=== PATIENT | female | born 1995 | race Caucasian/White ===

== ENCOUNTER 2019-04-27 22:31 | Emergency (ER) | payer BC ==
[2019-04-27 23:09] VITALS: TEMP 98.3; BMI 19.5
--- NOTE | 2019-04-27 23:33 | PDOC ---
Documentation entered by Massiel Vitale SCRIBE, acting as scribe for Aliya Harden MD. Aliya Harden MD: This documentation has been prepared by the scribe, Massiel Vitale SCRIBE, under my direction and personally reviewed by me in its entirety. I confirm that the documentation accurately reflects all work, treatment, procedures, and medical decision making performed by me. History of Present Illness - General Chief Complaint: Vaginal Bleeding Stated Complaint: 5 WKS /BLEEDING Time Seen by Provider: 04/27/19 23:17 History Source: Patient Exam Limitations: No Limitations - History of Present Illness Initial Comments: 04/27/19 23:47 The patient is a 23-year-old female, A3, currently five weeks , LMP 03/20/2019, with a past medical history significant for R. ovarian cyst who presents to the emergency department with vaginal spotting. The patient reports she noticed some burgundy colored vaginal spotting from 04/15-04/22, which self resolved. The patient reports that during that course of time, she didn't have intercourse. The patient reports she didn't have any bleeding on the . The patient states she had intercourse on the , following she noticed some light -colored bleeding, which resolved. The patient denies bleeding, until today, when she noticed some burgundy colored vaginal spotting, associated with an episode of lightheadedness. Denies syncopal episodes or falls. Denies fever or chills. The patient reports her POULTRY GRADER is on Maternity leave, so she hadn't seen followed up for care. The patient reports her cousin works as [employer], who did an [employer] on the patient, which shows she was four weeks . Past History - Past Medical History Allergies/Adverse Reactions: Allergies Allergy/AdvReac Type Severity Reaction Status Date / Time No Known Allergies Allergy Verified 04/27/19 23:00 Home Medications: Ambulatory Orders No Home Medications 08/26/11 COPD: No - Immunization History Immunization Up to Date: Yes - Psycho Social/Smoking Cessation Hx Smoking Status: No Smoking History: Never smoked Have you smoked in the past 12 months: No Number of Cigarettes Smoked Daily: 0 Information on smoking cessation initiated: No Hx Alcohol Use: No Drug/Substance Use Hx: No Substance Use Type: None Review of Systems - Review of Systems Able to Perform ROS?: Yes Comments:: 04/27/19 23:48 CONSTITUTIONAL: Absent: fever, chills, diaphoresis, generalized weakness, malaise, loss of appetite HEENT: Absent: rhinorrhea, nasal congestion, throat pain, throat swelling, difficulty swallowing, mouth swelling, ear pain, eye pain, visual Changes CARDIOVASCULAR: Absent: chest pain, syncope, palpitations, irregular heart rate, lightheadedness , peripheral edema RESPIRATORY: Absent: cough, shortness of breath, dyspnea with exertion, orthopnea, wheezing, stridor, hemoptysis GASTROINTESTINAL: Absent: abdominal pain, abdominal distension, nausea, vomiting, diarrhea, constipation, melena, hematochezia GENITOURINARY: +vaginal spotting. Absent: dysuria, frequency, urgency, hesitancy, hematuria, flank pain, genital pain MUSCULOSKELETAL: Absent: myalgia, arthralgia, joint swelling SKIN: Absent: rash, itching, pallor HEMATOLOGIC/IMMUNOLOGIC: Absent: easy bleeding, easy bruising, lymphadenopathy, frequent infections ENDOCRINE: Absent: unexplained weight gain, unexplained weight loss, heat intolerance, cold intolerance NEUROLOGIC: Absent: headache, focal weakness or paresthesias, dizziness, unsteady gait, seizure, mental status changes, bladder or bowel incontinence PSYCHIATRIC: Absent: anxiety, depression, suicidal or homicidal ideation, hallucinations. *Physical Exam - Vital Signs Last Vital Signs Temp Pulse Resp BP Pulse Ox 98.3 F 90 17 119/61 100 04/27/19 22:58 04/27/19 22:58 04/27/19 22:58 04/27/19 22:58 04/27/19 22:58 - Physical Exam 04/27/19 23:49 GENERAL: Thin 23 year old female. Well-appearing, well-nourished. No apparent distress. HEENT: Normocephalic, atraumatic. PERRL, EOM intact. CARDIOVASCULAR: Normal S1, S2. Regular rate and rhythm. PULMONARY: Clear to auscultation bilaterally. ABDOMEN: Soft, flat, non-distended, non-tender. : EXTREMITIES: Normal ROM in all four extremities. No gross deformities. SKIN: Warm, dry. No rash NEUROLOGICAL: Moving all extremities. No focal neurological deficits. ED Treatment Course - LABORATORY CBC & Chemistry Diagram: 04/27/19 23:30 - RADIOLOGY Radiology Studies Ordered: Category Date Time Status TRANSVAGINAL US PREG [US] Stat Ultrasound 04/27/19 23:18 Ordered Medical Decision Making - Medical Decision Making 04/27/19 23:23 23-year-old female who presents with concerns for vaginal spotting states her last menstrual period was March 20. She is 4 para 0 ,she has had 3 abortions Past surgical history none past medical history none 04/27/19 23:33 Plan: beta-hCG, type and screen, CBC and transvaginal ultrasound 04/28/19 01:35 Beta-hCG is 11,329 CBC is within normal limits there is no significant anemia 04/28/19 01:35 Hemoglobin is 13,000 and hematocrit is 40,000 04/28/19 02:16 Blood type is O+ Transvaginal ultrasound impression Intrauterine gestational sac measuring 1.2 cm Estimated gestational age 5 weeks and 6 days No pole at this time No subchorionic hemorrhage left 1.5 cm ovarian cyst with internal debris noted, no hypervascularity Impression :early but she needs to have repeat beta-hCG and repeat ultrasound in 2 days to make sure there is no heterotopic 04/28/19 02:19 Discharge - Discharge Information Problems reviewed: Yes Clinical Impression/Diagnosis: Vaginal bleeding affecting early Condition: Good Disposition: HOME - Admission No - Follow up/Referral Referrals: Tsering Barnhart MD [Primary Care Provider] - - Patient Discharge Instructions Patient Printed Discharge Instructions: DI for Vaginal Bleeding During Additional Instructions: You need to repeat your pelvic ultrasound and BHCG in 2 days - Post Discharge Activity
[2019-04-28 00:06] LABS: BASO % 1.1 % (0-2.0); EOS % 1.4 % (0-4.5); HEMATOCRIT 40.5 % (32.4-45.2); HEMOGLOBIN 13.6 GM/dL (10.7-15.3); MCH 30.7 pg (25.7-33.7); MCHC 33.7 g/dl (32.0-36.0); MEAN CELL VOLUME 90.9 fl (80-96); MEAN PLT VOLUME 8.5 fl (7.5-11.1); MONO % 7.5 % (3.8-10.2); PLATELET COUNT 382 K/MM3 (134-434); RBC 4.45 M/mm3 (3.60-5.2); RDW 12.8 % (11.6-15.6); WHITE BLOOD COUNT 9.8 K/mm3 (4.0-10.0)
[2019-04-28 02:43] VITALS: BP 116/62; PULSE 86
== END 2019-04-28 02:47 | disposition home or self-care (01) ==
LOC: JER 22:31
DX: O26.891 Other specified pregnancy related conditions, first trimester (principal); O20.8 Other hemorrhage in early pregnancy; O34.81 Maternal care for other abnormalities of pelvic organs, first trimester; N83.292 Other ovarian cyst, left side; Z3A.01 Less than 8 weeks gestation of pregnancy
CPT/HCPCS: 36415; 76817-TC; 84702; 85025; 86850; 86900; 86901; 99283-25

== ENCOUNTER 2019-11-22 03:40 | Inpatient (IN) | payer BC ==
--- OUTSIDE RECORDS SUMMARY | 2019-11-22 04:13 | XMS ---
:1995 Demographics Address [address] [place] [address] Preferred Language Romansh Marital Status or Jainism Affiliation NO Race [facility] Ethnic Group or Author Organization [facility] Support Name Relationship Address Phone [employer] Unavailable [address], [place] [address] [facility] Unavailable [place] [address] LUCY BAIRD FATHER [address] [place] [address] ALEX BAIRD MOTHER [address] [place] [address] Care Team Providers Name Role Phone JUAN RAMON Unavailable Unavailable Re-disclosure Warning The records that you are about to access may contain information from federally- assisted alcohol or drug abuse programs. If such information is present, then the following federally mandated warning applies: This information has been disclosed to you from records protected by federal confidentiality rules (42 CFR part 2). The federal rules prohibit you from making any further disclosure of this information unless further disclosure is expressly permitted by the written consent of the person to whom it pertains or as otherwise permitted by 42 CFR part 2. A general authorization for the release of medical or other information is NOT sufficient for this purpose. The Federal rules restrict any use of the information to criminally investigate or prosecute any alcohol or drug abuse patient.The records that you are about to access may contain highly sensitive health information, the redisclosure of which is protected by Article 27-F of the [facility] Public Health law. If you continue you may haveaccess to information: Regarding HIV / AIDS; Provided by facilities licensed or operated by the [facility] Office of Mental Health; or Provided by the [facility] Office for People With Developmental Disabilities. If such information is present, then the following [facility] mandated warning applies: This information has been disclosed to you from confidential records which are protected by state law. State law prohibits you from making any further disclosure of this information without the specific written consent of the person to whom it pertains, or as otherwise permitted by law. Any unauthorized further disclosure in violation of state law may result in a fine or long-term sentence or both. A general authorization for the release of medical or other information is NOT sufficient authorization for further disclosure. Encounters Encounter Providers Location Date Indications Data Source(s ) Outpatient Attender: 06/17/2019 Z03.818 [facility] juve KARAdmitter: JUAN RAMON 01:54:00 [facility] [employer] Z03.818 Insurance Providers Payer name Policy type / Policy ID Covered Covered democrat's Policy Plan Coverage type democrat ID relationship to [employer] Information harden BC PPO [id number] FA [id number] Problems, Conditions, and Diagnoses Code Display Name Description Problem Type Effective Data Sour ce(s) Dates Z03.818 Encounter for ENCNTR FOR OBS Diagnosis 06/17/2019 [facility] for FOR SUSP EXPSR TO 01:54:00 PM [facility] suspected OTH BIOLG AGENTS [employer] exposure to other RULED OUT biological agents ruled out Results ID Date Data Source [id number] 06/17/2019 12:00:00 AM EDT [facility] Name Value Range Interpretation Code Description Data Anca rce(s) Supporting Document(s ) [facility] XXX RAD+probe- Imp This lab was ordered by [facility] and reported by [employer] Procedure
--- OUTSIDE RECORDS SUMMARY | 2019-11-22 04:35 | XMS ---
:1995 Demographics Address [address] [place] [address] Preferred Language Belarusian Marital Status or Confucianist Affiliation NO Race [facility] Ethnic Group or Author Organization [facility] Support Name Relationship Address Phone [employer] DEPT RECRE[employer] Unavailable [address], [place] [address] [facility] [place] [address] LUCY BAIRD FATHER [address] [place] [address] ALEX BAIRD MOTHER [address] [place] [address] Care Team Providers Name Role Phone JUAN [...] is protected by Article 27-F of the [facility] Public Health law. If you continue you may haveaccess to information: Regarding HIV / AIDS; Provided by facilities licensed or operated by the [facility] Office of Mental Health; or Provided by the [facility] Office for People With Developmental Disabilities. If such information is present, then the following [facility] mandated warning applies: This information has been [...] Data Source(s ) Outpatient Attender: 06/17/2019 Z03.818 [facility] juve KARAdmitter: JUAN RAMON 01:54:00 [facility] [employer] Z03.818 Insurance Providers Payer name Policy type / Policy ID Covered Covered libertarian's Policy Plan Coverage type libertarian ID relationship to [employer] PPO [id number] FA [id number] Problems, Conditions, and Diagnoses Code Display Name Description Problem Type Effective Data Sour ce(s) Dates Z03.818 Encounter for ENCNTR FOR OBS Diagnosis 06/[facility] for FOR SUSP EXPSR TO 01:54:00 PM C [facility] suspected OTH BIOLG AGENTS [employer] exposure to other RULED OUT biological agents ruled out Results ID Date Data Source [id number] 06/17/2019 12:00:00 AM EDT [facility] Name Value Range Interpretation Code Description Data Anca rce(s) Supporting Document(s ) [facility] RNA XXX RAD+probe- Imp This lab was ordered by [facility] and reported by [employer] Procedure
[2019-11-22] MEDS: ELECTROLYTE-148 SOLN 1,000 ML IV SCH ×2 (05:00→08:57)
[2019-11-22] MEDS ORDERED: PROMETHAZINE HCL 25 MG/1 ML VIAL ONE (05:12)
[2019-11-22] MEDS ORDERED: SODIUM CHLORIDE 100 ML IVPB ONE ×4 (05:12→16:11)
[2019-11-22] MEDS ORDERED: AMPICILLIN SODIUM 2 GM VIAL ONE (05:12)
[2019-11-22] MEDS ORDERED: BUTORPHANOL TARTRATE 2 MG/ML VIAL ONE (05:12)
[2019-11-22] MEDS ORDERED: PROMETHAZINE HCL 25 MG/1 ML VIAL IVPUSH ONE (05:20)
[2019-11-22] MEDS ORDERED: BUTORPHANOL TARTRATE 1 MG/ML VIAL IVPB ONE (05:20)
[2019-11-22] MEDS ORDERED: AMPICILLIN - 2 GM in SODIUM CHLORIDE 100 ML IVPB ONE (05:21)
--- NOTE | 2019-11-22 05:28 | HP ---
Past Medical History - Primary Care Physician PCP:: Kee Hernandez - Admission Chief Complaint: 24yo P0 with at EGA 35w3d admitted with labor. History of Present Illness: Pt was seen on L&D on 11/21/2019 and tocolysed. She was also given the 1st dose of betamethasone injection. The pt went home and returned today in early active labor. History Source: Patient, Medical Record Limitations to Obtaining History: No Limitations - Past Medical History FRUIT PRESERVER: No: Alzheimer's, CVA, Dementia, Migraine, Multiple Sclerosis, Peripheral Neuropathy, Parkinson's, Seizure, Syncope, TIA, Vertigo, Other Cardiovascular: No: AFIB, Aneurysm, Aortic Insufficiency, Aortic Stenosis, CAD, CHF, Deep Vein Thrombosis, HTN, Hyperlipdemia, PA, Mitral Insufficiency, Mitral Stenosis, Murmur, Pulmonary Hypertension, Other Pulmonary: No: Asthma, Bronchitis, Cancer, COPD, O2 Dependent, Pneumonia, Previously Intubated, Pulmonary Embolus, Pulmonary Fibrosis, Sleep Apnea, Other Gastrointestinal: No: Ascites, Cancer, Constipation, Crohn's Disease, Diverticulitis, Diverticulosis, Esophageal Varices, Gastritis, GERD, GI Bleed, Hemorrhoids, Hiatal Hernia, Inflamatory Bowel Disease, Irritable Bowel Disease, Pancreatitis, Peptic Ulcer Disease, Ulcerative Colitis, Other Hepatobiliary: No: Cirrhosis, Cholelithiasis, Cholecystitis, Choledocholithiasis, Hepatitis A, Hepatitis B, Hepatitis C, Other Renal/: No: Renal Failure, Renal Inusuff, BPH, Cancer, Hematuria, Hemodialysis, Neurogenic Bladder, Renal Calculi, UTI, Other Reproductive: No: Ectopic , Endometriosis, Fibroids, PID, Polycystic Ovary Syndrome, Postmenopausal, Other ...: 4 ...Induced : 3 ... Weeks Gestation by Dates: 35.3 Heme/Onc: No: Anemia, B12 Deficiency, Bleeding Disorder, Cancer, Current Chemotherapy, Current Radiation Therapy, Hemochromatosis, Hypercoaguable State, Myeloproliferative Synd, Sickle Cell Disease, Sickle Cell Trait, Thrombocytopenia, Other Infectious Disease: No: AIDS, C-Diff, Herpes Zoster, HIV, MRSA, STD's, Tuberculosis, VREF, Other Psych: No: Addictions, Anxiety, Bipolar, Depression, Panic, Psychosis, Schizophrenia, Other Musculoskeletal: No: Bursitis, Chronic low back pain, Hemiparesis, Hemiplegia, Osteoarthritis, Paraplegia, Other Rheumatology: No: Fibromyalgia, Gout, Lupus, Rheumatoid Arthritis, Sarcoidosis, Vasculitis, Other ENT: No: Allergic Rhinitis, Sinusitis, Other Endocrine: No: Kemper's Disease, Christen's Disease, Diabetes Insipidus, Diabetes Mellitus, Hyperparathyroidism, Hyperthyroidism, Hypothyroidism, Osteopenia, SIADH, Other Dermatology: No: Basal Cell, Cellulitis, Eczema, Melanoma, Psoriasis, Squamous Cell, Other - Past Surgical History Past Surgical History: Yes: None Hx Myomectomy: No Hx Transabdominal Cerclage: No - Smoking History Smoking history: Never smoked Have you smoked in the past 12 months: No Aproximately how many cigarettes per day: 0 - Alcohol/Substance Use Hx Alcohol Use: No History of Substance Use: reports: None - Social History Usual Living Arrangement: Yes: Alone Do you think of yourself as: Straight/Heterosexual ADL: Independent History of Recent Travel: No Home Medications - Allergies Allergies/Adverse Reactions: Allergies Allergy/AdvReac Type Severity Reaction Status Date / Time No Known Allergies Allergy Verified 11/21/19 14:24 - Home Medications Home Medications: Ambulatory Orders Tablet 1 tab PO DAILY 11/21/19 Family Medical History Family History: Unremarkable Review of Systems - Review of Systems Constitutional: reports: Other (painful contractions) Eyes: reports: No Symptoms HENT: reports: No Symptoms Neck: reports: No Symptoms Cardiovascular: reports: No Symptoms Respiratory: reports: No Symptoms Gastrointestinal: reports: No Symptoms Genitourinary: reports: No Symptoms Breasts: reports: No Symptoms Reported Musculoskeletal: reports: No Symptoms Integumentary: reports: No Symptoms Neurological: reports: No Symptoms Endocrine: reports: No Symptoms Hematology/Lymphatic: reports: No Symptoms Psychiatric: reports: No Symptoms Pain Intensity: 8 Physical Exam - Maternity Constitutional: Yes: Well Nourished, No Distress, Calm Eyes: Yes: WNL, Conjunctiva Clear, EOM Intact HENT: Yes: WNL, Atraumatic, Normocephalic Neck: Yes: WNL, Supple, Trachea Midline Cardiovascular: Yes: WNL, Regular Rate and Rhythm Lungs: Clear to auscultation, Normal air movement Breast(s): Yes: WNL - Abdominal Exam/OB Fundal Height: 34 Number of Fetuses: Single Presentation: Vertex Contractions: Yes Regularity: Regular Intensity: Mild/Mod Monitor Mode: External Heart Rate (range): 130 Heart Rate Location: Midline Category: I Accelerations: Uniform Decelerations: None - Vaginal Exam/OB Vaginal Bleeding: No Speculum Exam: No Dilatation (cm): 4 Effacement (%): 90 Amniotic Membrane Status: Bulging Presentation: Vertex/Position Station: 0 - Physical Exam Musculoskeletal: Yes: WNL Extremities: Yes: WNL Edema: No Integumentary: Yes: WNL Deep Tendon Reflex Grade: Normal +2 ...Motor Strength: WNL Psychiatric: Yes: WNL, Alert, Oriented Hemorrhage Risk Assessment - Risk Factors Medium Risk Factors: Yes: None High Risk Factors: Yes: None Risk Score: 1 Risk Level: Medium Risk Imaging - Results Ultrasound: Report Reviewed Assessment/Plan 24yo P0 with at EGA 35w3d admitted with labor. Labor in early active phase Fetus with Category I tracing. Will start Abx for GBS prphylaxis Pt requested IV analgesia Plan to monitor labor progress
[2019-11-22 06:09] LABS: BASO % 0.1 % (0-2.0); HEMATOCRIT 21.3 % (32.4-45.2); HEMOGLOBIN 7.1 GM/dL (10.7-15.3); LYMPH % 6.9 % (8-40); MCH 30.2 pg (25.7-33.7); MCHC 33.4 g/dl (32.0-36.0); MEAN CELL VOLUME 90.6 fl (80-96); MEAN PLT VOLUME 7.9 fl (7.5-11.1); PLATELET COUNT 206 K/MM3 (134-434); RBC 2.35 M/mm3 (3.60-5.2); RDW 12.7 % (11.6-15.6); WHITE BLOOD COUNT 8.5 K/mm3 (4.0-10.0)
[2019-11-22 06:12] LABS: INR 0.96 (0.83-1.09); PROTHROMBIN TIME (PATIENT) 11.3 SEC (9.7-13.0)
[2019-11-22 06:15] LABS: ACTIVATED PTT 26.2 SECONDS (25.2-36.5)
[2019-11-22 07:14] VITALS: BMI 23.7
[2019-11-22] MEDS ORDERED: AMPICILLIN SODIUM 1 GM VIAL ONE ×3 (08:38→16:11)
[2019-11-22] MEDS: AMPICILLIN - 1 GM in SODIUM CHLORIDE 100 ML IVPB SCH ×3 (08:57→16:51)
[2019-11-22 09:01] LABS: BLOOD UREA NITROGEN 5.7 mg/dL (7-18); CALCIUM 8.4 mg/dL (8.5-10.1); CREATININE 0.5 mg/dL (0.55-1.3); POTASSIUM 4.3 mmol/L (3.5-5.1)
--- NOTE | 2019-11-22 09:17 | PN ---
Ante-Partal Exam - Subjective Subjective: Pt is c/o painful ctx's and pelvic pressure. Vital Signs: Vital Signs Temperature 98.1 F 11/22/19 08:00 Pulse Rate 92 H 11/22/19 08:00 Respiratory Rate 18 11/22/19 08:00 Blood Pressure 106/69 11/22/19 08:00 O2 Sat by Pulse Oximetry (%) Bleeding: No Headache: No Visual changes: No Right upper quadrant pain: No Pain (scale 1-10): 5 - Contractions Contractions: Yes Regularity: Irregular Intensity: Mild/Mod Monitor Mode: External - Exam during Labor Heart Rate: 135 Variability: Moderate Heart Rate Location: Midline Category: I Monitor Accelerations: Present Monitor Decelerations: None Exam: Vaginal Dilatation (cm): 5 Effacement (%): 90 Amniotic Membrane Status: Intact Presentation: Vertex Station: +1 - Intrapartum Hemorrhage Risk Medium Risk Factors: None High Risk Factors: None Risk Score: 0 Risk Level: Low Risk - Assessment/Plan Assessment/Plan: Pt progressing in active labor slowly Fetus with Category I tracing and requires no intervention Pt requested an epidural
--- NOTE | 2019-11-22 11:10 | PN ---
Ante-Partal Exam - Subjective Subjective: Pt with c/o contractions but irregular. She decided not to get epidural. Vital Signs: Vital Signs Temperature 98.1 F 11/22/19 08:00 Pulse Rate 101 H 11/22/19 10:18 Respiratory Rate 11/22/19 10:18 Blood Pressure 118/72 11/22/19 10:18 O2 Sat by Pulse Oximetry (%) Bleeding: No Headache: No Visual changes: No Right upper quadrant pain: No Pain (scale 1-10): 7 - Contractions Contractions: Yes Regularity: Irregular Intensity: Mild/Mod Monitor Mode: External - Exam during Labor Heart Rate: 135 Variability: Moderate Heart Rate Location: Midline Category: I Monitor Accelerations: Present Monitor Decelerations: None Exam: Vaginal Dilatation (cm): 5 Effacement (%): 90 Amniotic Membrane Status: Intact Presentation: Vertex Station: +1 - Intrapartum Hemorrhage Risk Medium Risk Factors: None High Risk Factors: None Risk Score: 0 Risk Level: Low Risk - Assessment/Plan Assessment/Plan: Pt with advanced cervical dilation but did not dilate further. The contractions are irregular. Fetus with a Category I tracing. Plan to delay AROM at this time as pt would benefit from a second Betamethasone injection at 4:30pm
[2019-11-22 12:09] LABS: BASO % 0.1 % (0-2.0); HEMOGLOBIN 10.5 GM/dL (10.7-15.3); LYMPH % 8.5 % (8-40); MCH 29.6 pg (25.7-33.7); MCHC 33.4 g/dl (32.0-36.0); MEAN CELL VOLUME 88.6 fl (80-96); MEAN PLT VOLUME 7.8 fl (7.5-11.1); MONO % 5.8 % (3.8-10.2); NEUT % 85.6 % (42.8-82.8); PLATELET COUNT 320 K/MM3 (134-434); RBC 3.57 M/mm3 (3.60-5.2); RDW 12.9 % (11.6-15.6)
[2019-11-22 12:12] LABS: HEMATOCRIT 31.6 % (32.4-45.2)
[2019-11-22 12:27] LABS: HEMATOCRIT 33.1 % (32.4-45.2); MCH 29.7 pg (25.7-33.7); MCHC 33.4 g/dl (32.0-36.0); MEAN CELL VOLUME 89.1 fl (80-96); MEAN PLT VOLUME 8.3 fl (7.5-11.1); PLATELET COUNT 313 K/MM3 (134-434); RBC 3.71 M/mm3 (3.60-5.2); RDW 12.7 % (11.6-15.6); WHITE BLOOD COUNT 15.9 K/mm3 (4.0-10.0)
[2019-11-22 12:33] LABS: WHITE BLOOD COUNT 16.4 K/mm3 (4.0-10.0)
[2019-11-22] MEDS ORDERED: FENTANYL/BUPIVACAINE/NS/PF - PCEA - 50 ML DISP.SYRIN EP ONE ×2 (14:26→19:16)
[2019-11-22] MEDS ORDERED: PCA PUMP NR ONE ×2 (14:26→19:16)
[2019-11-22] MEDS ORDERED: NALOXONE HCL 0.4 MG/ML VIAL IVPUSH PRN (14:58)
[2019-11-22] MEDS ORDERED: FENTANYL/BUPIVACAINE/NS/PF - PCEA - 50 ML DISP.SYRIN EP SCH (15:00)
[2019-11-22] MEDS ORDERED: BETAMET ACET/BETAMET NA PH 30 MG/5 ML VIAL IM ONE (17:00)
[2019-11-22] MEDS ORDERED: LIDO 2%/EPI 1:200000 PRESRVFRE (20 ML SDVIAL) ONE (18:10)
--- NOTE | 2019-11-22 18:31 | PN ---
Progress Note, Labor Vaginal Exam #3 Labor Exam Date: 11/22/19 Labor Exam Time: 18:10 Heart Rate (range): 130 Category 2 with modarate varriability Dilatation: 8-9 Effacement (%): 90% Amniotic Membrane Status: Bulging Presentation: Vertex/Position Station: -2 Remarks: Patient is requesting top off occasional varriables in spontaneous PTL s/p [place] #2 Supervisor Meter Repair Shop requested at the delivery
[2019-11-22] MEDS ORDERED: BUPIVACAINE HCL/PF 0.25% (2.5MG/ML) 10 ML VIAL ONE (19:14)
[2019-11-22] MEDS ORDERED: LIDOCAINE HCL 1% PRESERVATIVE FREE - 30ML VIAL ONE (19:26)
[2019-11-22] MEDS ORDERED: OXYTOCIN 20 UNITS in 0.9% NS 20 UNIT/1,000 ML INFUS.BAG IV ONE (19:26)
[2019-11-22] MEDS ORDERED: OXYTOCIN 30 UNITS in 0.9% NS 30 UNIT/500 ML INFUS.BAG IVPB ONE (19:26)
--- NOTE | 2019-11-22 19:38 | PN ---
Progress Note, Labor Vaginal Exam #4 Labor Exam Date: 11/22/19 Labor Exam Time: 19:10 Heart Rate (range): 130's Caegory 2 mod. varriability Dilatation: 9 Effacement (%): 100 Amniotic Membrane Status: Bulging Presentation: Vertex/Position Station: -2 Remarks: T 99.1 AROM start Pitocin augmentation Anticipate Laminator [employer] is in the hospital Anticipate MF Status reassuring
[2019-11-22] MEDS ORDERED: OXYTOCIN 30 UNITS in 0.9% NS 30 UNIT/500 ML INFUS.BAG IVPB SCH (19:45)
[2019-11-22] MEDS ORDERED: WITCH HAZEL 50% (TUCKS) 40 PAD/JAR PAD TP PRN (22:03)
[2019-11-22] MEDS ORDERED: METHYLERGONOVINE MALEATE 0.2 MG/1 ML AMP IM PRN (22:03)
[2019-11-22] MEDS ORDERED: BISACODYL 10 MG SUPP.RECT RC PRN (22:03)
[2019-11-22] MEDS ORDERED: BENZOCAINE 28 GM HEMORRHOIDAL OINTMENT TP PRN (22:03)
[2019-11-22] MEDS ORDERED: BENZOCAINE 20% 57 GM BOTTLE TP PRN (22:03)
--- NOTE | 2019-11-22 22:03 | PN ---
Delivery - Delivery Vaginal Delivery: No Problems Type of Anesthesia: Epidural Episiotomy/Laceration: None EBL (cc): 100 Delivery, Single - Stages of Labor Date 1st Stage Initiatied: 11/22/19 Time 1st Stage Initiated: 05:00 Date 2nd Stage Initiated: 11/22/19 Time 2nd Stage Initiated: 20:40 Date of Delivery: 11/22/19 Time of Delivery: 21:34 Date Placenta Delivered: 11/22/19 Time Placenta Delivered: 21:42 Placenta: Yes: Spontaneous - Condition of Finishing Room Supervisor/Asbestos Wire Finisher Present: Yes Gender: Male Weight: 4 lb 13 oz Position: Left, OA - 1 Minute Total Score: 9 5 Minutes Total Score: 9 - [place] Feeding Plan Initial Plan: Exclusive throughout hospitalization Benefits of Exclusively reinforced: Yes Remarks - Remarks Remarks: Cord around the neck x 1, reduced without difficulty
[2019-11-22] MEDS ORDERED: OXYTOCIN 20 UNITS in 0.9% NS 20 UNIT/1,000 ML INFUS.BAG IV SCH (22:15)
[2019-11-22 22:29] LABS: CORD BASE EXCESS -5.9 mmol/L (0-2); CORD HCO3 22.9 mmHg (20-29); CORD PCO2 58.2 mmHg (30-78); CORD pH 7.212 (7.14-7.44)
[2019-11-23] MEDS: AMPICILLIN - 1 GM in SODIUM CHLORIDE 100 ML IVPB SCH (00:49)
[2019-11-23] MEDS: ACETAMINOPHEN 325 MG TABLET (FP) PO PRN ×5 (01:11→19:55)
[2019-11-23] MEDS: FERROUS SO4 325 MG TABLET (FP) PO SCH ×2 (08:20→18:33)
[2019-11-23 08:49] LABS: HEMATOCRIT 34.3 % (32.4-45.2); HEMOGLOBIN 11.5 GM/dL (10.7-15.3); MCH 29.8 pg (25.7-33.7); MCHC 33.5 g/dl (32.0-36.0); MEAN PLT VOLUME 8.2 fl (7.5-11.1); MONO % 8.1 % (3.8-10.2); NEUT % 84.9 % (42.8-82.8); PLATELET COUNT 327 K/MM3 (134-434); RBC 3.85 M/mm3 (3.60-5.2); RDW 13.1 % (11.6-15.6); WHITE BLOOD COUNT 19.7 K/mm3 (4.0-10.0)
--- NOTE | 2019-11-23 09:04 | PN ---
Post Progress Note - Subjective Subjective: Patient without acute complaints. Reports tolerating oral intake without nausea or vomiting. Ambulating without dizziness. Denies fevers or chills. Pain well controlled with oral pain medication. Pumping/breast feeding without issue. Post Day: 1 Type of Delivery: Vital Signs: Vital Signs Temperature 98.2 F 11/23/19 05:27 Pulse Rate 88 11/23/19 05:27 Respiratory Rate 20 11/23/19 05:27 Blood Pressure 103/64 11/23/19 05:27 O2 Sat by Pulse Oximetry (%) 100 11/22/19 22:45 - Labs Labs: CBC WBC 19.7 K/mm3 (4.0-10.0) H 11/23/19 07:36 RBC 3.85 M/mm3 (3.60-5.2) 11/23/19 07:36 Hgb 11.5 GM/dL (10.7-15.3) 11/23/19 07:36 Hct 34.3 % (32.4-45.2) 11/23/19 07:36 MCV 89.0 fl (80-96) 11/23/19 07:36 MCH 29.8 pg (25.7-33.7) 11/23/19 07:36 MCHC 33.5 g/dl (32.0-36.0) 11/23/19 07:36 RDW 13.1 % (11.6-15.6) 11/23/19 07:36 Plt Count 327 K/MM3 (134-434) 11/23/19 07:36 MPV 8.2 fl (7.5-11.1) 11/23/19 07:36 Absolute Neuts (auto) 16.7 K/mm3 (1.5-8.0) H 11/23/19 07:36 Neutrophils % 84.9 % (42.8-82.8) H 11/23/19 07:36 Lymphocytes % 7.0 % (8-40) L 11/23/19 07:36 Monocytes % 8.1 % (3.8-10.2) 11/23/19 07:36 Eosinophils % 0.0 % (0-4.5) 11/23/19 07:36 Basophils % 0.0 % (0-2.0) 11/23/19 07:36 Nucleated RBC % 0 % (0-0) 11/23/19 07:36 Assessment/Plan 24yo P1 s/p , doing well stable, afebrile. Asymptomatic for anemia Elevated WBC Repeat CBC in am Baby boy doing well in Special care nursery, due to prematurity care instructions reviewed. Continue routine care. Ambulation encouraged Discharge instruction reviewed.
--- NOTE | 2019-11-23 09:05 | DS ---
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 Vital Signs: Vital Signs Temperature 98.2 F 11/23/19 05:27 Pulse Rate 88 11/23/19 05:27 Respiratory Rate 20 11/23/19 05:27 Blood Pressure 103/64 11/23/19 05:27 O2 Sat by Pulse Oximetry (%) 100 11/22/19 22:45 Constitutional: Yes: Well Nourished, No Distress, Calm Eyes: Yes: WNL HENT: Yes: WNL Neck: Yes: WNL Cardiovascular: Yes: WNL Respiratory: Yes: WNL, Regular, CTA Bilaterally Gastrointestinal: Yes: WNL, Normal Bowel Sounds Pelvis: Yes: WNL External Genitalia: Yes: Normal ....Post : Yes: Uterus firm, Uterus non-tender Breast(s): Yes: WNL Musculoskeletal: Yes: WNL Extremities: Yes: WNL Integumentary: Yes: WNL Wound/Incision: Yes: Clean/Dry, Well Approximated Neurological: Yes: WNL, Alert, Oriented ...Motor Strength: WNL Psychiatric: Yes: WNL, Alert, Oriented Labs: CBC, BMP 11/23/19 07:36 11/22/19 04:30 Delivery - Delivery Vaginal Delivery: No Problems Type of Anesthesia: Epidural Episiotomy/Laceration: None EBL (cc): 100 Delivery, Single - Stages of Labor Date 1st Stage Initiatied: 11/22/19 Time 1st Stage Initiated: 05:00 Date 2nd Stage Initiated: 11/22/19 Time 2nd Stage Initiated: 20:40 Date of Delivery: 11/22/19 Time of Delivery: 21:34 Time Placenta Delivered: 21:42 Placenta: Yes: Spontaneous - Condition of Infant [employer] 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 Present: Yes Name: Buffy Grewal Gender: Male Weight: 4 lb 13 oz Position: Left, OA Total Hours ROM (Hrs/Mins): 2hrs 22min - 1 Minute Total Score: 9 5 Minutes Total Score: 9 - [place]cock Feeding Plan Initial Plan: Exclusive throughout hospitalization Benefits of Exclusively reinforced: Yes Discharge Summary Problems reviewed: Yes Reason For Visit: ADMIT labor Procedures: Principal: Vaginal delivery Hospital Course: Unremarcable Condition: Good - Instructions Referrals: Tsering Barnhart MD [Staff Physician] - Disposition: HOME - Home Medications Comprehensive Discharge Medication List: Ambulatory Orders Tablet 1 tab PO DAILY 11/21/19
[2019-11-23] MEDS: PRENATAL VITAMINS W/ FOLIC ACID TABLET (FP) PO SCH (10:46)
[2019-11-23] MEDS: IBUPROFEN 600 MG TABLET (FP) PO PRN (19:56)
[2019-11-23] MEDS ORDERED: SENNOSIDES/DOCUSATE COMBO (SENNA PLUS) TABLET (UD) PO PRN (22:00)
[2019-11-23 23:08] VITALS: BP 109/57; PULSE 82; TEMP 98.2
[2019-11-24 08:43] LABS: BASO % 0.3 % (0-2.0); EOS % 0.5 % (0-4.5); HEMATOCRIT 35.3 % (32.4-45.2); HEMOGLOBIN 12.1 GM/dL (10.7-15.3); LYMPH % 18.3 % (8-40); MCH 30.7 pg (25.7-33.7); MCHC 34.4 g/dl (32.0-36.0); MEAN CELL VOLUME 89.3 fl (80-96); MEAN PLT VOLUME 8.3 fl (7.5-11.1); MONO % 6.7 % (3.8-10.2); NEUT % 74.2 % (42.8-82.8); PLATELET COUNT 318 K/MM3 (134-434); RBC 3.95 M/mm3 (3.60-5.2); RDW 13.2 % (11.6-15.6); WHITE BLOOD COUNT 13.1 K/mm3 (4.0-10.0)
[2019-11-24] MEDS: FERROUS SO4 325 MG TABLET (FP) PO SCH (08:45)
[2019-11-24] MEDS: IBUPROFEN 600 MG TABLET (FP) PO PRN (08:45)
[2019-11-24] MEDS: ACETAMINOPHEN 325 MG TABLET (FP) PO PRN (08:46)
[2019-11-24] MEDS: PRENATAL VITAMINS W/ FOLIC ACID TABLET (FP) PO SCH (10:58)
--- NOTE | 2019-11-26 17:49 | PATH ---
Surgical Pathology Report Patient Name: JUANCHO BAIRD Med. Rec. 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 Specimen(s) Received PLACENTA Clinical History , 35.2 weeks labor Final Diagnosis PLACENTA, DELIVERY: 310 G THIRD TRIMESTER PLACENTA WITH TRIVASCULAR UMBILICAL CORD AND MILD ACUTE SUBCHORIONITIS. Electronically Signed Ama Bess M.D. Gross Description The specimen is received fresh labeled placenta and is a 310 gram, 12.0 x 11.0 x 2.8 cm. placenta with attached membranes and umbilical cord. The attached membranes are wilson, translucent with focal opacities and insert marginally. The umbilical cord measures 11 cm. in length and averages 1.1 cm. in diameter. The cord inserts eccentrically, 3.5 cm. to the nearest margin. No true knots or strictures are identified. Cut surface of the umbilical cord reveals 3 vessels. The surface is cota-blue with minimal fibrin deposition and appropriate caliber vessels. The maternal surface is red-brown and intact. Sectioning reveals red-brown, spongy parenchyma. No lesions are identified. [facility] [employer] [facility] sections are submitted in three cassettes as follows: 1- membrane rolls and umbilical cord; 2-3- full thickness sections of placenta. 11/25/2019 [facility]11/25/2019
== END 2019-11-24 15:30 | disposition home or self-care (01) | DRG 807 ==
LOC: JDEL 03:40 → JLDR 03:58 → J3W 11-23 00:31
PROVIDERS: ADMIT Obstetrics & Gynecology; ATTEND Obstetrics & Gynecology
PROC: 10E0XZZ Delivery of Products of Conception, External Approach (ICD-10-PCS; principal; 2019-11-22)
DX: O60.13X0 Preterm labor second trimester with preterm delivery third trimester, not applicable or unspecified (principal); Z37.0 Single live birth; O99.013 Anemia complicating pregnancy, third trimester; D64.9 Anemia, unspecified; Z3A.35 35 weeks gestation of pregnancy
CPT/HCPCS: 36415; 36600; 59409; 80048; 82803; 85025; 85027; 85610; 85730; 86780; 86850; 86900; 86901; 87389; 88307-TC; 96372; U0003

== ENCOUNTER 2022-06-24 12:54 | Emergency (ER) | payer BC, OTHER ==
[2022-06-24 13:22] VITALS: BP 101/69; PULSE 87; RESP 19; TEMP 98.6; BMI 18.8
[2022-06-24] MEDS ORDERED: FAMOTIDINE 10 MG TABLET PO ONE (14:23)
[2022-06-24] MEDS ORDERED: FAMOTIDINE 10 MG TABLET ONE (14:31)
== END 2022-06-24 15:59 | disposition home or self-care (01) ==
LOC: JER 12:54 → JERFT 12:54
DX: R11.11 Vomiting without nausea (principal)
CPT/HCPCS: 84703; 99283-25

== ENCOUNTER 2023-03-25 08:44 | Emergency (ER) | payer BC, OTHER ==
[2023-03-25 08:51] VITALS: BP 113/68; PULSE 104; RESP 20; TEMP 97.9; BMI 22.4
[2023-03-25] MEDS ORDERED: ACETAMINOPHEN 500 MG TABLET (FP) PO ONE (09:59)
[2023-03-25] MEDS ORDERED: ACETAMINOPHEN 325 MG TABLET (FP) ONE (10:02)
== END 2023-03-25 10:28 | disposition home or self-care (01) ==
LOC: JERFT 08:44
DX: R50.9 Fever, unspecified (principal); U07.1 COVID-19; J10.1 Influenza due to other identified influenza virus with other respiratory manifestations; R51.9 Headache, unspecified
CPT/HCPCS: 0241U-QW; 87651; 99283-25

== ENCOUNTER 2023-12-09 08:30 | Inpatient (IN) | payer BC ==
[2023-12-09] MEDS: ELECTROLYTE-148 SOLN 1,000 ML IV SCH (08:45)
[2023-12-09] MEDS: OXYTOCIN 20 UNITS in 0.9% NS 20 UNIT/1,000 ML INFUS.BAG IV SCH (09:15)
[2023-12-09 10:11] LABS: BASO % 0.4 % (0-2.0); EOS % 0.2 % (0-4.5); HEMATOCRIT 38.3 % (32.4-45.2); HEMOGLOBIN 12.5 GM/dL (10.7-15.3); LYMPH % 6.9 % (8-40); MCH 29.8 pg (25.7-33.7); MCHC 32.7 g/dl (32.0-36.0); MEAN CELL VOLUME 91.3 fl (80-96); MEAN PLT VOLUME 8.1 fl (7.5-11.1); MONO % 3.9 % (3.8-10.2); NEUT % 88.6 % (42.8-82.8); PLATELET COUNT 391 10^3/uL (134-434); RDW 13.5 % (11.6-15.6); WHITE BLOOD COUNT 14.6 K/mm3 (4.0-10.0)
[2023-12-09 10:13] LABS: CORD BASE EXCESS -2.3 mmol/L (0-2); CORD HCO3 25.7 mmHg (20-29); CORD pH 7.264 (7.14-7.44)
[2023-12-09 10:16] LABS: CORD BASE EXCESS -1.1 mmol/L (0-2); CORD HCO3 25.7 mmHg (20-29); CORD PCO2 51.4 mmHg (30-78); CORD pH 7.317 (7.14-7.44)
[2023-12-09 10:25] LABS: INR 0.91 (0.83-1.09); PROTHROMBIN TIME (PATIENT) 10.5 SEC (9.7-13.0)
[2023-12-09 10:26] LABS: POTASSIUM 3.8 mmol/L (3.5-5.1)
[2023-12-09 10:27] LABS: ACTIVATED PTT 27.9 SECONDS (25.2-36.5); CALCIUM 8.4 mg/dL (8.5-10.1)
[2023-12-09 10:28] LABS: BLOOD UREA NITROGEN 7.9 mg/dL (7-18)
[2023-12-09 10:31] LABS: CREATININE 0.6 mg/dL (0.55-1.3)
[2023-12-09] MEDS ORDERED: ACETAMINOPHEN 325 MG TABLET (FP) ONE (10:36)
[2023-12-09] MEDS: ACETAMINOPHEN 325 MG TABLET (FP) PO PRN (10:40)
[2023-12-09] MEDS ORDERED: WITCH HAZEL 50% (TUCKS) 40 PAD/JAR PAD TP PRN (11:13)
[2023-12-09] MEDS ORDERED: BISACODYL 10 MG SUPP.RECT RC PRN (11:13)
[2023-12-09] MEDS ORDERED: BENZOCAINE 20% 57 GM BOTTLE TP PRN (11:13)
[2023-12-09] MEDS ORDERED: BENZOCAINE 28 GM HEMORRHOIDAL OINTMENT TP PRN (11:13)
[2023-12-09] MEDS ORDERED: METHYLERGONOVINE MALEATE 0.2 MG/1 ML AMP IM PRN (11:13)
[2023-12-09 11:57] VITALS: BMI 30.2
[2023-12-09] MEDS: IBUPROFEN 600 MG TABLET (FP) PO PRN (12:51)
[2023-12-10 08:32] LABS: BASO % 0.6 % (0-2.0); EOS % 1.1 % (0-4.5); HEMATOCRIT 39.4 % (32.4-45.2); HEMOGLOBIN 12.9 GM/dL (10.7-15.3); LYMPH % 18.3 % (8-40); MCH 29.5 pg (25.7-33.7); MCHC 32.8 g/dl (32.0-36.0); MEAN CELL VOLUME 89.8 fl (80-96); MEAN PLT VOLUME 8.1 fl (7.5-11.1); MONO % 6.2 % (3.8-10.2); NEUT % 73.8 % (42.8-82.8); PLATELET COUNT 417 10^3/uL (134-434); RBC 4.39 M/mm3 (3.60-5.2); RDW 12.9 % (11.6-15.6)
[2023-12-10] MEDS ORDERED: SENNOSIDES/DOCUSATE COMBO (SENNA PLUS) TABLET (UD) PO PRN (22:00)
[2023-12-10 22:17] VITALS: RESP 18
[2023-12-11 09:16] VITALS: BP 109/77; PULSE 99; TEMP 98.5
== END 2023-12-11 12:45 | disposition home or self-care (01) | DRG 807 ==
LOC: JLDR 08:30 → J3W 12:05
PROVIDERS: ADMIT Obstetrics & Gynecology; ATTEND Obstetrics & Gynecology
PROC: 10E0XZZ Delivery of Products of Conception, External Approach (ICD-10-PCS; principal; 2023-12-09)
DX: O60.14X0 Preterm labor third trimester with preterm delivery third trimester, not applicable or unspecified (principal); Z3A.35 35 weeks gestation of pregnancy; Z37.0 Single live birth
CPT/HCPCS: 36415; 36600; 59409; 80048; 82803; 85025; 85610; 85730; 86780; 86850; 86900; 86901; 88307-TC